=== PATIENT | female | born 1990 | race Caucasian/White ===

== ENCOUNTER 2018-01-04 13:02 | Emergency (ER) | payer BC, MEDICAID ==
[~2018-01-04] VITALS: Ht 170.2 cm; Wt 63.5 kg
[~2018-01-04 13:02] MED LIST: CIPR-262 PO
[2018-01-04 13:06] VITALS: BP 114/71
[2018-01-04 14:00] LABS: APPEARANCE,URINE CLEAR (CLEAR); BILIRUBIN,URINE NEGATIVE (NEGATIVE); BLOOD, URINE 1+ Ery/uL (NEGATIVE); KETONES,URINE NEGATIVE (NEGATIVE); LEUKOCYTE ESTERASE ,URINE NEGATIVE (NEGATIVE); NITRITE, URINE NEGATIVE (NEGATIVE); PH,URINE 6.5 (5.0-8.0); PROTEIN,URINE NEGATIVE (NEGATIVE); UGLUCOSE NEGATIVE (NEGATIVE); UROBILINOGEN,URINE 0.2 EU/dL (0.2)
[2018-01-04 14:01] LABS: COLOR,URINE STRAW (YELLOW)
--- NOTE | 2018-01-04 14:08 | NUR ---
UPDATED ETA OF 20 MIN FOR US TECH
[2018-01-04 14:42] LABS: BASOPHILS # (AUTO) 0.1 /CMM (0.0-0.2); BASOPHILS % (AUTO) 1.2 % (0.0-2.0); EOSINOPHILS % (AUTO) 0.9 % (0.0-6.0); HEMATOCRIT 39 % (33-45); HEMOGLOBIN 13.3 g/dL (11.5-14.8); LYMPHOCYTES # (AUTO) 1.5 /CMM (0.8-4.8); LYMPHOCYTES % (AUTO) 27.6 % (20.0-44.0); MEAN CORPUSCULAR HGB CONC 34 g/dl (31.0-36.0); MEAN CORPUSCULAR VOLUME 91 fL (82-100); MONOCYTES # (AUTO) 0.4 /CMM (0.1-1.30); MONOCYTES % (AUTO) 7.8 % (2.0-12.0); NEUTROPHILS # (AUTO) 3.5 /CMM (1.8-8.9); NEUTROPHILS % (AUTO) 62.5 % (43.0-81.0); PLATELET COUNT (AUTO) 275 /CMM (150-450); RDW COEFFICIENT OF VARIATION 11.4 (11.5-15.0); RED BLOOD CELL COUNT(AUTO) 4.24 MIL/uL (4.0-5.2); WHITE BLOOD COUNT (AUTO) 5.5 K/uL (4.3-11.0)
[2018-01-04 15:01] LABS: BACTERIA,URINE None seen /HPF (None Seen); SQUAMOUS EPITHELIAL CELL,UR 0-2 /HPF (None Seen); WBC,URINE 0-2 /HPF (0-3)
== END 2018-01-04 15:45 | disposition home or self-care (01) ==
LOC: ER 13:03
DX: O20.0 Threatened abortion (principal); F17.200 Nicotine dependence, unspecified, uncomplicated
CPT/HCPCS: 36415; 76856-TC; 81000-TC; 84702-TC; 84703-TC; 85025-TC; A4606; Z7610

== ENCOUNTER 2023-09-11 19:36 | Emergency (ER) | payer MEDICAID ==
[~2023-09-11] VITALS: Ht 180.3 cm; Wt 54.4 kg
[2023-09-11] MEDS ORDERED: ONDANSETRON HCL/PF 4 MG/2 ML VIAL ONE (21:53)
[2023-09-11 22:12] LABS: BASOPHILS % (AUTO) 0.3 % (0.0-2.0); EOSINOPHILS % (AUTO) 0.8 % (0.0-6.0); HEMATOCRIT 35 % (33-45); HEMOGLOBIN 11.9 g/dL (11.5-14.8); LYMPHOCYTES # (AUTO) 2.2 K/uL (0.8-4.8); LYMPHOCYTES % (AUTO) 38.8 % (20.0-44.0); MEAN CORPUSCULAR HEMOGLOBIN 33 PG (26.0-33.0); MEAN CORPUSCULAR HGB CONC 34 g/dl (31.0-36.0); MEAN CORPUSCULAR VOLUME 96 fL (82-100); MONOCYTES # (AUTO) 0.3 K/uL (0.1-1.30); MONOCYTES % (AUTO) 5.7 % (2.0-12.0); NEUTROPHILS # (AUTO) 3.1 K/uL (1.8-8.9); NEUTROPHILS % (AUTO) 54.4 % (43.0-81.0); PLATELET COUNT (AUTO) 351 K/uL (150-450); RED BLOOD CELL COUNT(AUTO) 3.62 MIL/uL (4.0-5.2); RED CELL DISTRIBUTION WIDTH 14.5 % (11.5-15.0); WHITE BLOOD COUNT (AUTO) 5.7 K/uL (4.3-11.0)
[2023-09-11 22:34] LABS: INR 1.06 (0.91-1.10); PARTIAL THROMBOPLASTIN TIME 29.7 SEC (24.3-34.3); PROTHROMBIN TIME 11.2 SECS (9.2-11.1)
[2023-09-11 22:34] LABS: APPEARANCE,URINE CLOUDY (CLEAR); BILIRUBIN,URINE NEGATIVE (NEGATIVE); BLOOD, URINE 3+ Ery/uL (NEGATIVE); COLOR,URINE YELLOW (YELLOW); KETONES,URINE NEGATIVE (NEGATIVE); LEUKOCYTE ESTERASE ,URINE NEGATIVE (NEGATIVE); NITRITE, URINE NEGATIVE (NEGATIVE); PROTEIN,URINE NEGATIVE (NEGATIVE); UGLUCOSE NEGATIVE (NEGATIVE)
[2023-09-11 22:36] LABS: PREGNANCY TEST URINE QUAL NEGATIVE (NEGATIVE)
[2023-09-11 22:40] LABS: ADD URINE CULTURE NO; BACTERIA,URINE Rare /HPF (None Seen); RBC,URINE 21-50 /HPF (0-2); SQUAMOUS EPITHELIAL CELL,UR Few /HPF (None Seen)
[2023-09-11 22:50] LABS: BILIRUBIN,DIRECT 0.2 mg/dL (0.0-0.2); BILIRUBIN,TOTAL 0.6 mg/dL (0.2-1.0); CALCIUM, SERUM 9.3 mg/dL (8.5-10.1); CREATININE 0.7 mg/dL (0.6-1.3); POTASSIUM 4.2 mmol/L (3.5-5.1); TOTAL PROTEIN, SERUM 7.3 g/dL (6.4-8.2)
[2023-09-11] MEDS: IV NS 0.9% 1,000 ML BAG IV ONE (22:59)
[2023-09-11] MEDS: ONDANSETRON HCL/PF 4 MG/2 ML VIAL IVP ONE (22:59)
[2023-09-11] MEDS ORDERED: CEFTRIAXONE 500 MG VIAL ONE (23:42)
[2023-09-11] MEDS ORDERED: IBUPROFEN 400 MG TABLET ONE (23:42)
[2023-09-11] MEDS ORDERED: LIDOCAINE /MPF 1% VIAL 5 ML VIAL ONE (23:42)
[2023-09-11] MEDS ORDERED: IBUP-1955 PO (23:50)
[2023-09-11] MEDS ORDERED: DOXY-326 PO (23:50)
[2023-09-11] MEDS ORDERED: ONDA4TAB5 PO (23:50)
[2023-09-11] MEDS: IBUPROFEN 400 MG TABLET PO ONE (23:53)
[2023-09-11] MEDS: CEFTRIAXONE 500 MG VIAL IM ONE (23:53)
[2023-09-12 00:39] VITALS: BP 125/80; TEMP 98.7; O2SAT 98
[2023-09-14 04:06] LABS: CHLAMYDIA TRACHOMATIS NAA Negative (Negative); NEISSERIA GONORRHOEAE NAA Negative (Negative)
== END 2023-09-12 00:40 | disposition home or self-care (01) ==
LOC: ER 19:38
DX: N93.9 Abnormal uterine and vaginal bleeding, unspecified (principal); R10.2 Pelvic and perineal pain; R11.2 Nausea with vomiting, unspecified; F17.200 Nicotine dependence, unspecified, uncomplicated; Z60.2 Problems related to living alone
CPT/HCPCS: 99285; 96374; 76856; 96361; 85025; 80048; 83690; 80076; 84703; 81001; 36415; 85730; 86850; 84702; 87491; 87591; 96372; J0696; J2405; J7030; J3490